=== PATIENT | male | born 1965 | race Caucasian/White ===

== ENCOUNTER → 2016-10-26 | Outpatient (CLI) | payer BC | LOC: SLEEP 21:30 | DX: G47.33 Obstructive sleep apnea (adult) (pediatric) (principal) | CPT/HCPCS: 95810 ==

== ENCOUNTER 2020-09-24 07:56 | Emergency (ER) | payer BC ==
[~2020-09-24 07:56] MED LIST: FLEXERIL 10 MG10 MG PO; IBUPROFEN600 MG PO; MEDROL4 MG PO; PERCOCET 5/325 T1 EA PO
[2020-09-24] MEDS ORDERED: HYDROCODON-ACE1 EAC4 PO (13:49)
== END 2020-09-24 14:31 | disposition home or self-care (01) ==
LOC: ER1 07:56
DX: S42.291A Other displaced fracture of upper end of right humerus, initial encounter for closed fracture (principal); S43.014A Anterior dislocation of right humerus, initial encounter; I10 Essential (primary) hypertension; W01.0XXA Fall on same level from slipping, tripping and stumbling without subsequent striking against object, initial encounter; Y92.009 Unspecified place in unspecified non-institutional (private) residence as the place of occurrence of the external cause
CPT/HCPCS: 23650; 71045; 73030; 73200; 96374; 96375; 99152; 99284; J2270; J2405; J2704